=== PATIENT | male | born 1945 | race Asian ===

== ENCOUNTER 2023-05-09 21:59 | Inpatient (IN) | payer MEDICARE, OTHER ==
[~2023-05-09] VITALS: Ht 170.2 cm; Wt 49.9 kg
[2023-05-09] MEDS: levoFLOXacin 750MG/D5W 150 ML IV ONE (22:30)
[2023-05-09] MEDS: VANCOMYCIN IV 1,000 MG in IV DEXTROSE 5% 250 ML IV ONE (22:30)
[2023-05-09] MEDS ORDERED: PIPERACILLIN/TAZOBACTAM/D5W 50 ML IV ONE (23:07)
[2023-05-09 23:09] LABS: BASOPHILS # (AUTO) 0.1 K/UL (0.0-0.2); BASOPHILS % (AUTO) 0.7 % (0.0-2.0); HEMATOCRIT 28.8 % (36.7-47.1); HEMOGLOBIN 9.3 g/dL (12.5-16.3); LYMPHOCYTES # (AUTO) 1.2 K/uL (0.8-4.8); LYMPHOCYTES % (AUTO) 9.9 % (20.5-51.5); MEAN CORPUSCULAR HEMOGLOBIN 29.8 uug (23.8-33.4); MEAN CORPUSCULAR HGB CONC 32 g/dL (32.5-36.3); MEAN CORPUSCULAR VOLUME 92.6 fL (73.0-96.2); MONOCYTES # (AUTO) 0.7 K/uL (0.1-1.30); MONOCYTES % (AUTO) 5.4 % (0.0-11.0); NEUTROPHILS # (AUTO) 10.2 K/uL (1.8-8.9); PLATELET COUNT (AUTO) 329 K/uL (152-348); RED BLOOD CELL COUNT(AUTO) 3.11 MIL/uL (4.06-5.63); RED CELL DISTRIBUTION WIDTH 17.5 % (12.1-16.2); WHITE BLOOD COUNT (AUTO) 12.2 K/uL (3.6-10.2)
[2023-05-09] MEDS: IV NORMAL SALINE 1000 ML BAG IV ONE (23:21)
[2023-05-09] MEDS: PIPERACILLIN SODIUM/TAZOBACTAM 3.375 G in IV DEXTROSE 5% 50 ML IV ONE (23:21)
[2023-05-09 23:22] LABS: ABG BASE EXCESS -6.4 mmol/L (-2.0-2.0); ABG HCO3 17.7 mmol/L (22.0-26.0); ABG PCO2 30.1 mmHg (35.0-48.0); ABG PH 7.387 (7.340-7.440); ABG PO2 106.6 mmHg (75.0-100.0); ABG SITE RIGHT BRACHIAL; ABG TOTAL HEMOGLOBIN 9.5 G/dL (14.0-18.0); AaDO2 97.9 mmHg; COHb 0.3 % (0.0-3.9); MetHb 0.2 % (0.0-1.5)
[2023-05-09 23:22] LABS: *BILIRUBIN,URIN NEGATIVE (NEGATIVE); *BLOOD, URINE 2+ (NEGATIVE); *COLOR,URINE YELLOW (YELLOW); *KETONES,URINE NEGATIVE (NEGATIVE); *PROTEIN,URINE 2+ (NEGATIVE); *UROBILINOGEN,URINE 0.2 E.U./dl (NORMAL); LEUKOCYTE ESTERASE ,URINE 3+ (NEGATIVE); NITRITE, URINE NEGATIVE (NEGATIVE); UGLUCOSE NEGATIVE (NEGATIVE)
[2023-05-09 23:32] LABS: ETHANOL < 3 MG/DL (0-10)
[2023-05-09 23:34] LABS: AMMONIA < 10 umol/L (11-32)
[2023-05-09 23:34] LABS: *AMPHETAMINE, URINE NEGATIVE (NEGATIVE); *BARBITURATE, URINE NEGATIVE (NEGATIVE); *BENZODIAZEPINE, URINE NEGATIVE (NEGATIVE); *CANNABINOID, URINE NEGATIVE (NEGATIVE); *COCCAINE, URINE NEGATIVE (NEGATIVE); *OPIATE, URINE NEGATIVE (NEGATIVE); *PHENCYCLIDINE SCREEN,URINE NEGATIVE (NEGATIVE); FENTANYL, URINE NEGATIVE (NEGATIVE)
[2023-05-09 23:36] LABS: DIFFERENTIAL COMMENT 1
[2023-05-09 23:38] LABS: ACETAMINOPHEN 7.7 ug/mL (10-30); ALANINE AMINOTRANSFERASE 11 U/L (16-63); ALBUMIN 2.2 g/dL (3.4-5.0); ALKALINE PHOSPHATASE 119 U/L (50-136); ASPARTATE AMINOTRANSFERASE 8 U/L (15-37); BILIRUBIN,DIRECT 0.1 mg/dL (0.0-0.2); BILIRUBIN,TOTAL 0.2 mg/dL (0.2-1.0); CALCIUM 9.8 mg/dL (8.5-10.1); CARBON DIOXIDE 21 mmol/L (21-32); CHLORIDE 115 mmol/L (98-107); CREATININE 4.1 mg/dL (0.6-1.3); GLUCOSE 126 mg/dL (74-106); SODIUM SERUM 148 mmol/L (136-145)
[2023-05-09 23:38] LABS: *CLARITY,URINE CLOUDY (CLEAR)
[2023-05-09 23:42] LABS: UREA NITROGEN, BLOOD 114 mg/dL (7-18)
[2023-05-10] VITALS (19 sets, daily range): BP systolic 107–136; BP diastolic 59–85; TEMP 97.6–97.8; O2SAT 28–100
[2023-05-10 00:24] LABS: BACTERIA,URINE FEW /HPF (NONE SEEN); RBC,URINE 20-50 /HPF (0-3); SQUAMOUS EPITHELIAL CELL,UR NONE SEEN /HPF (NONE SEEN); WBC,URINE TNTC /HPF (0-3)
[2023-05-10] MEDS ORDERED: POTA-88 PO (00:42)
[2023-05-10] MEDS ORDERED: DIVA125C5 PO (00:42)
[2023-05-10] MEDS ORDERED: DICL100G31 TP (00:42)
[2023-05-10] MEDS ORDERED: SACU1TAB PO (00:42)
[2023-05-10] MEDS ORDERED: ALBU1.25 IH (00:42)
[2023-05-10] MEDS ORDERED: GABA-532 PO (00:42)
[2023-05-10] MEDS ORDERED: MAG-5 PO (00:42)
[2023-05-10] MEDS ORDERED: MULT-213 PO (00:42)
[2023-05-10] MEDS ORDERED: ACET-3117 PO (00:42)
[2023-05-10] MEDS ORDERED: ASCO500C18 PO (00:42)
[2023-05-10] MEDS ORDERED: FERR325T28 PO (00:42)
[2023-05-10] MEDS ORDERED: POLY250017 PO (00:42)
[2023-05-10] MEDS ORDERED: LATA7.5D OP (00:42)
[2023-05-10] MEDS ORDERED: PROT30LI PO (00:42)
[2023-05-10] MEDS ORDERED: ARGI500T4 PO (00:42)
[2023-05-10] MEDS ORDERED: SENN8.6T19 PO (00:42)
[2023-05-10] MEDS ORDERED: LIDO30AD10 TD (00:42)
[2023-05-10] MEDS ORDERED: LEVE500T83 PO (00:42)
[2023-05-10] MEDS ORDERED: DONE10TA44 PO (00:42)
[2023-05-10] MEDS ORDERED: FAMO-132 PO (00:42)
[2023-05-10] MEDS ORDERED: METH5TAB6 PO (00:42)
[2023-05-10] MEDS ORDERED: SPIR25TA6 PO (00:42)
[2023-05-10] MEDS: IV NORMAL SALINE 1000 ML BAG IV ONE (00:45)
[2023-05-10] MEDS: ALBUTEROL SULFATE 2.5 MG/3 ML NEBU NEB ONE (00:45)
[2023-05-10] MEDS ORDERED: ALBUTEROL SULFATE 2.5 MG/3 ML NEBU ONE (00:55)
[2023-05-10] MEDS ORDERED: SODIUM BICARBONATE 8.4% 50 MEQ/50 ML DISP.SYRIN IV ONE (00:57)
[2023-05-10] MEDS: SODIUM BICARBONATE 8.4% 50 MEQ/50 ML DISP.SYRIN IV ONE (01:05)
[2023-05-10] MEDS ORDERED: INSULIN REGULAR, HUMAN 300 UNIT/3 ML VIAL ONE (01:06)
[2023-05-10] MEDS ORDERED: DEXTROSE 50% 50 ML DISP.SYRIN ONE (01:08)
[2023-05-10] MEDS: DEXTROSE 50% 50 ML DISP.SYRIN IV ONE (01:16)
[2023-05-10] MEDS: INSULIN REGULAR, HUMAN 300 UNIT/3 ML VIAL IV ONE (01:17)
[2023-05-10] MEDS ORDERED: VANCOMYCIN IV 200 ML ONE (01:21)
[2023-05-10] MEDS ORDERED: levoFLOXacin 750MG/D5W 150 ML IV ONE (03:12)
[2023-05-10] MEDS ORDERED: MORPHINE SULFATE 4 MG/1 ML DISP.SYRIN ONE (03:43)
[2023-05-10] MEDS ORDERED: ONDANSETRON 4 MG/2 ML VIAL ONE (03:43)
[2023-05-10] MEDS ORDERED: HYDROMORPHONE 1 MG/1 ML DISP.SYRIN ONE (04:53)
[2023-05-10] MEDS ORDERED: REMEDY ESSENTIAL ZINC PASTE 113 GM TP PRN (06:15)
[2023-05-10] MEDS ORDERED: MAGNESIUM HYDROXIDE 30 ML LIQUID UDC PO PRN (06:15)
[2023-05-10] MEDS: IV NS 1000 ML 1,000 ML IV PRN (07:45)
[2023-05-10 07:59] LABS: CARBON DIOXIDE 16 mmol/L (21-32); CHLORIDE 121 mmol/L (98-107); CREATININE 2.9 mg/dL (0.6-1.3); GLUCOSE 123 mg/dL (74-106); POTASSIUM 5.6 mmol/L (3.5-5.1); SODIUM SERUM 149 mmol/L (136-145)
[2023-05-10 08:15] LABS: UREA NITROGEN, BLOOD 91 mg/dL (7-18)
[2023-05-10] MEDS ORDERED: PANTOPRAZOLE SODIUM 40 MG VIAL ONE (09:08)
[2023-05-10] MEDS: PANTOPRAZOLE SODIUM 40 MG VIAL IV SCH (09:13)
[2023-05-10 09:50] LABS: CALCIUM 7.9 mg/dL (8.5-10.1)
[2023-05-10] MEDS: VANCOMYCIN IV 500 MG in IV DEXTROSE 5% 100 ML IV ONE (11:28)
[2023-05-10] MEDS ORDERED: NOREPINEPHRINE BITARTRATE 8 MG in IV NORMAL SALINE 242 ML IV PRN (12:00)
[2023-05-10 12:55] LABS: *BILIRUBIN,URIN NEGATIVE (NEGATIVE); *BLOOD, URINE 2+ (NEGATIVE); *CLARITY,URINE CLEAR (CLEAR); *COLOR,URINE YELLOW (YELLOW); *KETONES,URINE NEGATIVE (NEGATIVE); *PROTEIN,URINE 1+ (NEGATIVE); *UROBILINOGEN,URINE 0.2 E.U./dl (NORMAL); LEUKOCYTE ESTERASE ,URINE 1+ (NEGATIVE); NITRITE, URINE NEGATIVE (NEGATIVE); UGLUCOSE NEGATIVE (NEGATIVE)
[2023-05-10] MEDS ORDERED: NOREPINEPHRINE BITARTRATE 4 MG/4 ML VIAL IV ONE (13:07)
[2023-05-10 13:32] LABS: *CREATININE,URINE 38.7 mg/dL (30-125); *URINE TOTAL PROTEIN RANDOM 65.4 mg/dL (<150/24HR)
[2023-05-10] MEDS ORDERED: PIPERACILLIN SODIUM/TAZOBACTAM 3.375 G in IV DEXTROSE 5% 50 ML IV SCH (14:00)
[2023-05-10] MEDS: PIPERACILLIN/TAZO 2.25 G in IV DEXTROSE 5% 50 ML IV SCH (14:07)
[2023-05-10 14:12] LABS: BACTERIA,URINE MODERATE /HPF (NONE SEEN); SQUAMOUS EPITHELIAL CELL,UR FEW /HPF (NONE SEEN); WBC,URINE 20-50 /HPF (0-3); YEAST,URINE BUDDING YEAST /HPF (NONE SEEN)
[2023-05-10] MEDS: AMIODARONE HCL IV 150 MG in IV DEXTROSE 5% 100 ML IV ONE (18:12)
[2023-05-10] MEDS: MORPHINE SULFATE 2 MG/1 ML DISP.SYRIN IV PRN (21:21)
[2023-05-10] MEDS: AMIODARONE HCL IV 450 MG in IV DEXTROSE 5% 250 ML IV PRN (21:36)
[2023-05-11] VITALS (95 sets, daily range): BP systolic 72–130; BP diastolic 43–112; TEMP 97.5–98; O2SAT 92–100
[2023-05-11] MEDS: NOREPINEPHRINE BITARTRATE 8 MG in IV NORMAL SALINE 242 ML IV PRN ×2 (02:33→11:00)
[2023-05-11] MEDS: AMIODARONE HCL 150 MG/3 ML VIAL IV ONE (04:48)
[2023-05-11] MEDS ORDERED: IV 1/2NS 1000 ML 1,000 ML IV PRN (08:45)
[2023-05-11 09:20] LABS: ALANINE AMINOTRANSFERASE 7 U/L (16-63); ALBUMIN 1.8 g/dL (3.4-5.0); ALKALINE PHOSPHATASE 92 U/L (50-136); ASPARTATE AMINOTRANSFERASE 9 U/L (15-37); BILIRUBIN,TOTAL 0.3 mg/dL (0.2-1.0); CALCIUM 8.5 mg/dL (8.5-10.1); CARBON DIOXIDE 19 mmol/L (21-32); CHLORIDE 123 mmol/L (98-107); CREATINE KINASE, TOTAL 61 U/L (39-308); CREATININE 2.7 mg/dL (0.6-1.3); GLUCOSE 90 mg/dL (74-106); PHOSPHOROUS 4.9 mg/dL (2.5-4.9); POTASSIUM 5.9 mmol/L (3.5-5.1); SODIUM SERUM 150 mmol/L (136-145); TOTAL PROTEIN, SERUM 6.4 g/dL (6.4-8.2); UREA NITROGEN, BLOOD 79 mg/dL (7-18); VANCOMYCIN,RANDOM 15.6 ug/mL (20.0-30.0)
[2023-05-11 09:37] LABS: BASOPHILS % (AUTO) 0.1 % (0.0-2.0); DIFFERENTIAL COMMENT 0; HEMATOCRIT 23.6 % (36.7-47.1); LYMPHOCYTES # (AUTO) 0.4 K/uL (0.8-4.8); LYMPHOCYTES % (AUTO) 2.3 % (20.5-51.5); MEAN CORPUSCULAR HEMOGLOBIN 29.8 uug (23.8-33.4); MEAN CORPUSCULAR HGB CONC 31 g/dL (32.5-36.3); MEAN CORPUSCULAR VOLUME 95.1 fL (73.0-96.2); MONOCYTES # (AUTO) 0.6 K/uL (0.1-1.30); MONOCYTES % (AUTO) 3.2 % (0.0-11.0); NEUTROPHILS # (AUTO) 16.4 K/uL (1.8-8.9); NEUTROPHILS % (AUTO) 94.4 % (38.5-71.5); PLATELET COUNT (AUTO) 241 K/uL (152-348); RED CELL DISTRIBUTION WIDTH 17.9 % (12.1-16.2); WHITE BLOOD COUNT (AUTO) 17.3 K/uL (3.6-10.2)
[2023-05-11 09:39] LABS: HEMOGLOBIN 7.4 g/dL (12.5-16.3); RED BLOOD CELL COUNT(AUTO) 2.49 MIL/uL (4.06-5.63)
[2023-05-11] MEDS: IV D5 1/2 NS 1000 ML 1,000 ML IV PRN (10:54)
[2023-05-11 10:55] LABS: THYROID STIMULATING HORMONE 4.621 mIU/mL (0.358-3.740)
[2023-05-11] MEDS: ONDANSETRON 4 MG/2 ML VIAL IV PRN (16:25)
[2023-05-11] MEDS: MUPIROCIN 2% OINT 22 GM TUBE NS SCH (18:48)
[2023-05-11 23:32] LABS: CALCIUM 8.6 mg/dL (8.5-10.1); CARBON DIOXIDE 17 mmol/L (21-32); CHLORIDE 121 mmol/L (98-107); CREATININE 2.6 mg/dL (0.6-1.3); GLUCOSE 111 mg/dL (74-106); POTASSIUM 5.6 mmol/L (3.5-5.1); SODIUM SERUM 149 mmol/L (136-145); UREA NITROGEN, BLOOD 71 mg/dL (7-18)
[2023-05-12] VITALS (83 sets, daily range): BP systolic 71–128; BP diastolic 49–104; TEMP 97.4–98; O2SAT 92–100
[2023-05-12] MEDS: SODIUM BICARBONATE 8.4% 50 MEQ in IV D5W 1000ML 1,000 ML IV PRN (00:54)
[2023-05-12] MEDS: SODIUM POLYSTYRENE SULFONATE 15 G/60 ML LIQUID UDC NG ONE ×2 (02:00→05:15)
[2023-05-12 07:07] LABS: PTH, INTACT 56 pg/mL (15-65)
[2023-05-12] MEDS: ACETAMINOPHEN 325 MG TABLET PO PRN (07:58)
[2023-05-12] MEDS ORDERED: AMIODARONE HCL IV 450 MG in IV DEXTROSE 5% 250 ML IV PRN (08:00)
[2023-05-12 08:08] LABS: BASOPHILS % (AUTO) 0.2 % (0.0-2.0); EOSINOPHILS % (AUTO) 0.1 % (0.0-7.0); HEMATOCRIT 24.3 % (36.7-47.1); HEMOGLOBIN 7.8 g/dL (12.5-16.3); LYMPHOCYTES # (AUTO) 0.7 K/uL (0.8-4.8); LYMPHOCYTES % (AUTO) 3.7 % (20.5-51.5); MEAN CORPUSCULAR HGB CONC 32 g/dL (32.5-36.3); MEAN CORPUSCULAR VOLUME 93.8 fL (73.0-96.2); MONOCYTES # (AUTO) 0.8 K/uL (0.1-1.30); NEUTROPHILS # (AUTO) 17.8 K/uL (1.8-8.9); PLATELET COUNT (AUTO) 282 K/uL (152-348); RED BLOOD CELL COUNT(AUTO) 2.59 MIL/uL (4.06-5.63); WHITE BLOOD COUNT (AUTO) 19.4 K/uL (3.6-10.2)
[2023-05-12 08:14] LABS: DIFFERENTIAL COMMENT 1
[2023-05-12 08:17] LABS: CALCIUM 8.7 mg/dL (8.5-10.1); CARBON DIOXIDE 20 mmol/L (21-32); CHLORIDE 124 mmol/L (98-107); CREATININE 2.5 mg/dL (0.6-1.3); GLUCOSE 90 mg/dL (74-106); POTASSIUM 5.2 mmol/L (3.5-5.1); SODIUM SERUM 152 mmol/L (136-145); UREA NITROGEN, BLOOD 63 mg/dL (7-18)
[2023-05-12] MEDS: MORPHINE SULFATE 4 MG/1 ML DISP.SYRIN IM PRN (09:08)
[2023-05-12] MEDS: NEPRO 1000 ML GT PRN (17:39)
[2023-05-12] MEDS: PIPERACILLIN SODIUM/TAZOBACTAM 3.375 G in IV DEXTROSE 5% 100 ML IV SCH (18:58)
[2023-05-12] MEDS: TEMAZEPAM 15 MG CAPSULE PO PRN (22:22)
[2023-05-13] VITALS (61 sets, daily range): BP systolic 74–134; BP diastolic 51–93; TEMP 96.8–98; O2SAT 95–100
[2023-05-13] MEDS: IV NORMAL SALINE 250 ML IV PRN (00:01)
[2023-05-13] MEDS ORDERED: AMIODARONE HCL 150 MG/3 ML VIAL IV ONE ×4 (01:07→01:08)
[2023-05-13] MEDS: AMIODARONE HCL IV 150 MG in IV DEXTROSE 5% 100 ML IV ONE (04:11)
[2023-05-13] MEDS: AMIODARONE HCL IV 450 MG in IV DEXTROSE 5% 250 ML IV PRN (04:13)
[2023-05-13 05:24] LABS: BASOPHILS % (AUTO) 0.1 % (0.0-2.0); EOSINOPHILS % (AUTO) 0.1 % (0.0-7.0); HEMATOCRIT 24.1 % (36.7-47.1); HEMOGLOBIN 7.6 g/dL (12.5-16.3); LYMPHOCYTES % (AUTO) 4.2 % (20.5-51.5); MEAN CORPUSCULAR HEMOGLOBIN 29.7 uug (23.8-33.4); MEAN CORPUSCULAR HGB CONC 32 g/dL (32.5-36.3); MONOCYTES # (AUTO) 0.8 K/uL (0.1-1.30); MONOCYTES % (AUTO) 3.2 % (0.0-11.0); NEUTROPHILS # (AUTO) 22.3 K/uL (1.8-8.9); NEUTROPHILS % (AUTO) 92.4 % (38.5-71.5); PLATELET COUNT (AUTO) 276 K/uL (152-348); RED BLOOD CELL COUNT(AUTO) 2.56 MIL/uL (4.06-5.63); RED CELL DISTRIBUTION WIDTH 18.2 % (12.1-16.2); WHITE BLOOD COUNT (AUTO) 24.2 K/uL (3.6-10.2)
[2023-05-13 05:35] LABS: DIFFERENTIAL COMMENT 1
[2023-05-13 05:54] LABS: CALCIUM 8.5 mg/dL (8.5-10.1); CARBON DIOXIDE 20 mmol/L (21-32); CHLORIDE 121 mmol/L (98-107); CREATININE 2.4 mg/dL (0.6-1.3); GLUCOSE 84 mg/dL (74-106); POTASSIUM 4.5 mmol/L (3.5-5.1); SODIUM SERUM 152 mmol/L (136-145); UREA NITROGEN, BLOOD 56 mg/dL (7-18)
[2023-05-13] MEDS: levETIRAcetam 500 MG TABLET PO SCH (16:39)
[2023-05-13] MEDS: SENNOSIDES 1 TABLET PO SCH (16:40)
[2023-05-13] MEDS: METHIMAZOLE 5 MG TABLET PO SCH (16:40)
[2023-05-13] MEDS ORDERED: Medication Not On Formulary EA (Levetiracetam 500 MG) PO SCH (17:00)
[2023-05-14] VITALS (77 sets, daily range): BP systolic 67–146; BP diastolic 35–97; TEMP 97.6–98.7; O2SAT 87–100
[2023-05-14 05:11] LABS: BASOPHILS % (AUTO) 0.1 % (0.0-2.0); EOSINOPHILS % (AUTO) 0.1 % (0.0-7.0); HEMATOCRIT 24.4 % (36.7-47.1); HEMOGLOBIN 7.8 g/dL (12.5-16.3); LYMPHOCYTES # (AUTO) 0.8 K/uL (0.8-4.8); MEAN CORPUSCULAR HEMOGLOBIN 29.9 uug (23.8-33.4); MEAN CORPUSCULAR HGB CONC 32 g/dL (32.5-36.3); MEAN CORPUSCULAR VOLUME 93.5 fL (73.0-96.2); MONOCYTES % (AUTO) 4.6 % (0.0-11.0); NEUTROPHILS # (AUTO) 19.1 K/uL (1.8-8.9); NEUTROPHILS % (AUTO) 91.2 % (38.5-71.5); PLATELET COUNT (AUTO) 262 K/uL (152-348); RED BLOOD CELL COUNT(AUTO) 2.61 MIL/uL (4.06-5.63); RED CELL DISTRIBUTION WIDTH 18.1 % (12.1-16.2); WHITE BLOOD COUNT (AUTO) 20.9 K/uL (3.6-10.2)
[2023-05-14 05:37] LABS: DIFFERENTIAL COMMENT 1
[2023-05-14 05:41] LABS: CALCIUM 8.5 mg/dL (8.5-10.1); CARBON DIOXIDE 17 mmol/L (21-32); CHLORIDE 116 mmol/L (98-107); CREATININE 2.6 mg/dL (0.6-1.3); GLUCOSE 75 mg/dL (74-106); MAGNESIUM 1.8 mg/dL (1.8-2.4); PHOSPHOROUS 5.1 mg/dL (2.5-4.9); POTASSIUM 4.5 mmol/L (3.5-5.1); SODIUM SERUM 147 mmol/L (136-145); UREA NITROGEN, BLOOD 56 mg/dL (7-18)
[2023-05-14] MEDS ORDERED: MIDODRINE HCL 2.5 MG TABLET PO SCH (09:00)
[2023-05-14 09:06] LABS: A/G RATIO 0.5 (0.7-1.7); ALPHA-1-GLOBULIN 0.4 g/dL (0.0-0.4); ALPHA-2-GLOBULIN 0.8 g/dL (0.4-1.0); BETA GLOBULIN 0.8 g/dL (0.7-1.3); GAMMA GLOBULIN 1.7 g/dL (0.4-1.8); GLOBULIN, TOTAL 3.7 g/dL (2.2-3.9); M-SPIKE Not Observed g/dL (Not Observed)
[2023-05-14] MEDS: MIDODRINE HCL 5 MG TABLET PO SCH (09:38)
[2023-05-14] MEDS: MEROPENEM 500 MG in IV NORMAL SALINE 50 ML IV SCH (09:40)
[2023-05-14 10:13] LABS: ABG BASE EXCESS -13.3 mmol/L (-2.0-2.0); ABG HCO3 13.5 mmol/L (22.0-26.0); ABG PCO2 34.8 mmHg (35.0-48.0); ABG PH 7.207 (7.340-7.440); ABG PO2 73.6 mmHg (75.0-100.0); ABG TOTAL HEMOGLOBIN 8.8 G/dL (14.0-18.0); AaDO2 91.8 mmHg; MetHb 0.2 % (0.0-1.5); O2Hb 93.1 % (94.0-97.0)
[2023-05-14] MEDS ORDERED: ETOMIDATE 20 MG/10 ML VIAL ONE (14:00)
[2023-05-14] MEDS ORDERED: LEVALBUTEROL HCL NEB 0.63 MG/3 ML NEBU NEB PRN (14:15)
[2023-05-14] MEDS: methylPREDNISolone SOD SUCC 125 MG/2 ML VIAL IV ONE (14:28)
[2023-05-14] MEDS: PROPOFOL 100 ML IV PRN (14:31)
[2023-05-14 16:01] LABS: ABG BASE EXCESS -13.6 mmol/L (-2.0-2.0); ABG HCO3 14.2 mmol/L (22.0-26.0); ABG PCO2 40.4 mmHg (35.0-48.0); ABG PH 7.164 (7.340-7.440); AaDO2 88.4 mmHg; COHb 0.6 % (0.0-3.9); MetHb 0.2 % (0.0-1.5); O2Hb 90.9 % (94.0-97.0); VT, ABG 400 mL
[2023-05-14] MEDS: DOXYCYCLINE HYCLATE 100 MG TABLET PO SCH (21:15)
[2023-05-14] MEDS ORDERED: MUPIROCIN 2% OINT 22 GM TUBE NS SCH (21:15)
[2023-05-14] MEDS: HEPARIN SODIUM,PORCINE 5,000 UNITS/ML VIAL SQ SCH (21:17)
[2023-05-15] VITALS (75 sets, daily range): BP systolic 84–136; BP diastolic 55–94; TEMP 96.4–97.8; O2SAT 100
[2023-05-15 05:03] LABS: BASOPHILS % (AUTO) 0.3 % (0.0-2.0); HEMATOCRIT 26.4 % (36.7-47.1); HEMOGLOBIN 8.4 g/dL (12.5-16.3); LYMPHOCYTES # (AUTO) 0.5 K/uL (0.8-4.8); MEAN CORPUSCULAR HEMOGLOBIN 29.5 uug (23.8-33.4); MEAN CORPUSCULAR HGB CONC 32 g/dL (32.5-36.3); MEAN CORPUSCULAR VOLUME 92.7 fL (73.0-96.2); MONOCYTES # (AUTO) 0.1 K/uL (0.1-1.30); MONOCYTES % (AUTO) 0.6 % (0.0-11.0); NEUTROPHILS # (AUTO) 14.6 K/uL (1.8-8.9); NEUTROPHILS % (AUTO) 96.1 % (38.5-71.5); PLATELET COUNT (AUTO) 270 K/uL (152-348); RED BLOOD CELL COUNT(AUTO) 2.85 MIL/uL (4.06-5.63); RED CELL DISTRIBUTION WIDTH 18.2 % (12.1-16.2); WHITE BLOOD COUNT (AUTO) 15.2 K/uL (3.6-10.2)
[2023-05-15 05:31] LABS: ABG BASE EXCESS -12.8 mmol/L (-2.0-2.0); ABG HCO3 13.3 mmol/L (22.0-26.0); ABG PCO2 31.5 mmHg (35.0-48.0); ABG PH 7.244 (7.340-7.440); ABG SITE RIGHT RADIAL; ABG TOTAL HEMOGLOBIN 10.8 G/dL (14.0-18.0); AaDO2 98.5 mmHg; COHb 0.3 % (0.0-3.9); MetHb 0.2 % (0.0-1.5); O2Hb 98.4 % (94.0-97.0); VT, ABG 450 mL
[2023-05-15 05:36] LABS: CALCIUM 8.6 mg/dL (8.5-10.1); CARBON DIOXIDE 15 mmol/L (21-32); CHLORIDE 113 mmol/L (98-107); CREATININE 2.9 mg/dL (0.6-1.3); GLUCOSE 124 mg/dL (74-106); MAGNESIUM 2.1 mg/dL (1.8-2.4); PHOSPHOROUS 6.8 mg/dL (2.5-4.9); POTASSIUM 4.6 mmol/L (3.5-5.1); SODIUM SERUM 144 mmol/L (136-145); UREA NITROGEN, BLOOD 62 mg/dL (7-18)
[2023-05-15 05:45] LABS: DIFFERENTIAL COMMENT 1
[2023-05-15] MEDS: HYDROCORTISONE SOD SUCCINATE 100 MG/2 ML VIAL IV SCH (09:47)
[2023-05-16] VITALS (63 sets, daily range): BP systolic 76–122; BP diastolic 44–83; TEMP 93–96.4; O2SAT 100
[2023-05-16 05:04] LABS: BASOPHILS % (AUTO) 0.1 % (0.0-2.0); HEMATOCRIT 24.2 % (36.7-47.1); HEMOGLOBIN 7.9 g/dL (12.5-16.3); LYMPHOCYTES # (AUTO) 0.3 K/uL (0.8-4.8); LYMPHOCYTES % (AUTO) 3.1 % (20.5-51.5); MEAN CORPUSCULAR HEMOGLOBIN 30.3 uug (23.8-33.4); MEAN CORPUSCULAR HGB CONC 33 g/dL (32.5-36.3); MONOCYTES # (AUTO) 0.2 K/uL (0.1-1.30); MONOCYTES % (AUTO) 1.6 % (0.0-11.0); NEUTROPHILS # (AUTO) 9.8 K/uL (1.8-8.9); NEUTROPHILS % (AUTO) 95.2 % (38.5-71.5); PLATELET COUNT (AUTO) 271 K/uL (152-348); RED BLOOD CELL COUNT(AUTO) 2.61 MIL/uL (4.06-5.63); RED CELL DISTRIBUTION WIDTH 18.2 % (12.1-16.2); WHITE BLOOD COUNT (AUTO) 10.3 K/uL (3.6-10.2)
[2023-05-16 05:31] LABS: CARBON DIOXIDE 16 mmol/L (21-32); CHLORIDE 111 mmol/L (98-107); CREATININE 2.8 mg/dL (0.6-1.3); GLUCOSE 133 mg/dL (74-106); MAGNESIUM 2.2 mg/dL (1.8-2.4); SODIUM SERUM 142 mmol/L (136-145); UREA NITROGEN, BLOOD 78 mg/dL (7-18)
[2023-05-16 05:37] LABS: DIFFERENTIAL COMMENT 1
[2023-05-16 05:50] LABS: ABG BASE EXCESS -13.5 mmol/L (-2.0-2.0); ABG HCO3 12.5 mmol/L (22.0-26.0); ABG PCO2 29.4 mmHg (35.0-48.0); ABG PH 7.246 (7.340-7.440); ABG PO2 128.7 mmHg (75.0-100.0); ABG SITE RIGHT RADIAL; ABG TOTAL HEMOGLOBIN 9.6 G/dL (14.0-18.0); AaDO2 98.1 mmHg; COHb 0.3 % (0.0-3.9); MetHb 0.3 % (0.0-1.5); O2Hb 97.8 % (94.0-97.0); VT, ABG 400 mL
[2023-05-16] MEDS ORDERED: REMEDY ESSENTIAL ZINC PASTE 113 GM TOP PRN (12:30)
[2023-05-16] MEDS: MIDODRINE HCL 5 MG TABLET PO SCH (13:39)
[2023-05-16] MEDS: MIRALAX 17 GM POWD.PACK PO PRN (16:33)
[2023-05-16] MEDS: METOCLOPRAMIDE HCL 10 MG/2 ML VIAL IV SCH (21:08)
[2023-05-17] VITALS (103 sets, daily range): BP systolic 37–176; BP diastolic 13–121; TEMP 94–98; O2SAT 84–100
[2023-05-17] MEDS: SODIUM BICARBONATE 8.4% 100 MEQ in IV 1/2NS 1000 ML 1,000 ML IV PRN (03:59)
[2023-05-17 05:20] LABS: BASOPHILS # (AUTO) 0.2 K/UL (0.0-0.2); BASOPHILS % (AUTO) 1.1 % (0.0-2.0); HEMATOCRIT 32.8 % (36.7-47.1); HEMOGLOBIN 10.4 g/dL (12.5-16.3); LYMPHOCYTES # (AUTO) 0.2 K/uL (0.8-4.8); LYMPHOCYTES % (AUTO) 1.1 % (20.5-51.5); MEAN CORPUSCULAR HGB CONC 32 g/dL (32.5-36.3); MEAN CORPUSCULAR VOLUME 91.3 fL (73.0-96.2); MONOCYTES # (AUTO) 0.3 K/uL (0.1-1.30); MONOCYTES % (AUTO) 1.3 % (0.0-11.0); NEUTROPHILS # (AUTO) 20.5 K/uL (1.8-8.9); NEUTROPHILS % (AUTO) 96.5 % (38.5-71.5); PLATELET COUNT (AUTO) 397 K/uL (152-348); RED BLOOD CELL COUNT(AUTO) 3.59 MIL/uL (4.06-5.63); RED CELL DISTRIBUTION WIDTH 18.5 % (12.1-16.2); WHITE BLOOD COUNT (AUTO) 21.3 K/uL (3.6-10.2)
[2023-05-17 05:34] LABS: DIFFERENTIAL COMMENT 1
[2023-05-17 05:46] LABS: ALBUMIN 1.9 g/dL (3.4-5.0); CARBON DIOXIDE 11 mmol/L (21-32); CHLORIDE 107 mmol/L (98-107); CREATININE 3.1 mg/dL (0.6-1.3); GLUCOSE 176 mg/dL (74-106); MAGNESIUM 2.3 mg/dL (1.8-2.4); PHOSPHOROUS 7.5 mg/dL (2.5-4.9); POTASSIUM 4.1 mmol/L (3.5-5.1); SODIUM SERUM 138 mmol/L (136-145)
[2023-05-17 05:52] LABS: UREA NITROGEN, BLOOD 89 mg/dL (7-18)
[2023-05-17 06:11] LABS: ABG BASE EXCESS -18.5 mmol/L (-2.0-2.0); ABG HCO3 9.4 mmol/L (22.0-26.0); ABG PCO2 29.1 mmHg (35.0-48.0); ABG PH 7.126 (7.340-7.440); ABG PO2 85.9 mmHg (75.0-100.0); ABG SITE RIGHT RADIAL; ABG TOTAL HEMOGLOBIN 11.4 G/dL (14.0-18.0); AaDO2 93.4 mmHg; COHb 0.1 % (0.0-3.9); MetHb 0.2 % (0.0-1.5); O2Hb 93.9 % (94.0-97.0); VT, ABG 400 mL
[2023-05-17] MEDS ORDERED: NOREPINEPHRINE BITARTRATE 4 MG/4 ML VIAL IV ONE (07:09)
[2023-05-17] MEDS ORDERED: PHENYLEPHRINE IV 50 MG in IV NORMAL SALINE 245 ML IV PRN (07:45)
[2023-05-17] MEDS: PHENYLEPHRINE IV 50 MG in IV NORMAL SALINE 245 ML IV PRN ×2 (08:04→21:41)
[2023-05-17] MEDS: IV LACTATED RINGERS SOLUTION 1,000 ML IV PRN ×2 (10:19→14:06)
[2023-05-17] MEDS: SODIUM BICARBONATE 8.4% 50 MEQ/50 ML DISP.SYRIN IV ONE (10:24)
[2023-05-17] MEDS ORDERED: NOREPINEPHRINE BITARTRATE 32 MG in IV NORMAL SALINE 218 ML IV PRN (10:30)
[2023-05-17 12:12] LABS: ABG BASE EXCESS -10.3 mmol/L (-2.0-2.0); ABG HCO3 14.4 mmol/L (22.0-26.0); ABG PCO2 27.4 mmHg (35.0-48.0); ABG PH 7.337 (7.340-7.440); ABG SITE LEFT RADIAL; ABG TOTAL HEMOGLOBIN 8.7 G/dL (14.0-18.0); AaDO2 97.4 mmHg; MetHb 0.3 % (0.0-1.5); O2Hb 97.4 % (94.0-97.0); VT, ABG 400 mL
[2023-05-17 12:43] LABS: LACTIC ACID 2.5 mmol/L (0.4-2.0)
[2023-05-17] MEDS: SODIUM BICARBONATE 8.4% 150 MEQ in IV D5W 1000ML 1,000 ML IV PRN (12:59)
[2023-05-17 15:02] LABS: BILIRUBIN,DIRECT 0.1 mg/dL (0.0-0.2); BILIRUBIN,TOTAL 0.4 mg/dL (0.2-1.0)
[2023-05-17] MEDS: DOXYCYCLINE HYCLATE IV 100 MG in IV DEXTROSE 5% 100 ML IV SCH (20:58)
[2023-05-17] MEDS ORDERED: PHENYLEPHRINE 10 MG/1 ML VIAL ONE (21:43)
[2023-05-18] VITALS (91 sets, daily range): BP systolic 65–116; BP diastolic 45–85; TEMP 97.4–98.4; O2SAT 99–100
[2023-05-18 05:12] LABS: MEAN CORPUSCULAR VOLUME 89.3 fL (73.0-96.2); WHITE BLOOD COUNT (AUTO) 12.8 K/uL (3.6-10.2)
[2023-05-18 05:13] LABS: BASOPHILS % (AUTO) 0.1 % (0.0-2.0); LYMPHOCYTES # (AUTO) 0.1 K/uL (0.8-4.8); MEAN CORPUSCULAR HEMOGLOBIN 29.4 uug (23.8-33.4); MEAN CORPUSCULAR HGB CONC 33 g/dL (32.5-36.3); MONOCYTES # (AUTO) 0.2 K/uL (0.1-1.30); MONOCYTES % (AUTO) 1.3 % (0.0-11.0); NEUTROPHILS # (AUTO) 12.5 K/uL (1.8-8.9); NEUTROPHILS % (AUTO) 97.6 % (38.5-71.5); PLATELET COUNT (AUTO) 221 K/uL (152-348)
[2023-05-18 05:36] LABS: DIFFERENTIAL COMMENT 1; HEMATOCRIT 20.9 % (36.7-47.1); HEMOGLOBIN 6.9 g/dL (12.5-16.3); RED BLOOD CELL COUNT(AUTO) 2.34 MIL/uL (4.06-5.63)
[2023-05-18 05:43] LABS: CARBON DIOXIDE 25 mmol/L (21-32); CHLORIDE 102 mmol/L (98-107); CREATININE 2.3 mg/dL (0.6-1.3); GLUCOSE 366 mg/dL (74-106); MAGNESIUM 1.4 mg/dL (1.8-2.4); PHOSPHOROUS 4.7 mg/dL (2.5-4.9); SODIUM SERUM 139 mmol/L (136-145); UREA NITROGEN, BLOOD 66 mg/dL (7-18)
[2023-05-18 05:52] LABS: CALCIUM 6.1 mg/dL (8.5-10.1)
[2023-05-18] MEDS ORDERED: POTASSIUM CHLORIDE 20 MEQ POWDER PACKET GT ONE (09:00)
[2023-05-18 10:15] LABS: CALCIUM 6.4 mg/dL (8.5-10.1); CARBON DIOXIDE 20 mmol/L (21-32); CHLORIDE 101 mmol/L (98-107); CREATININE 2.4 mg/dL (0.6-1.3); GLUCOSE 318 mg/dL (74-106); SODIUM SERUM 134 mmol/L (136-145); UREA NITROGEN, BLOOD 69 mg/dL (7-18)
[2023-05-18] MEDS: MAGNESIUM SULFATE/D5W 100 ML IV SCH (10:32)
[2023-05-18] MEDS: POTASSIUM CHLORIDE 50 ML IV SCH (10:33)
[2023-05-18] MEDS ORDERED: ALBUTEROL SULFATE 1.25 MG/3 ML NEBU NEB PRN (16:00)
[2023-05-19] VITALS (37 sets, daily range): BP systolic 50–127; BP diastolic 25–89; TEMP 97.6–97.8; O2SAT 93–100
[2023-05-19 05:49] LABS: BASOPHILS % (AUTO) 0.1 % (0.0-2.0); DIFFERENTIAL COMMENT 0; HEMATOCRIT 32.3 % (36.7-47.1); HEMOGLOBIN 10.9 g/dL (12.5-16.3); LYMPHOCYTES # (AUTO) 0.3 K/uL (0.8-4.8); MEAN CORPUSCULAR HEMOGLOBIN 30.8 uug (23.8-33.4); MEAN CORPUSCULAR HGB CONC 34 g/dL (32.5-36.3); MEAN CORPUSCULAR VOLUME 91.5 fL (73.0-96.2); MONOCYTES # (AUTO) 0.4 K/uL (0.1-1.30); MONOCYTES % (AUTO) 1.4 % (0.0-11.0); NEUTROPHILS # (AUTO) 25.8 K/uL (1.8-8.9); NEUTROPHILS % (AUTO) 97.5 % (38.5-71.5); PLATELET COUNT (AUTO) 248 K/uL (152-348); RED BLOOD CELL COUNT(AUTO) 3.53 MIL/uL (4.06-5.63); RED CELL DISTRIBUTION WIDTH 17.4 % (12.1-16.2); WHITE BLOOD COUNT (AUTO) 26.4 K/uL (3.6-10.2)
[2023-05-19 06:08] LABS: CALCIUM 6.9 mg/dL (8.5-10.1); CARBON DIOXIDE 19 mmol/L (21-32); CHLORIDE 105 mmol/L (98-107); CREATININE 2.7 mg/dL (0.6-1.3); GLUCOSE 126 mg/dL (74-106); MAGNESIUM 2.1 mg/dL (1.8-2.4); PHOSPHOROUS 4.8 mg/dL (2.5-4.9); POTASSIUM 3.6 mmol/L (3.5-5.1); SODIUM SERUM 137 mmol/L (136-145)
[2023-05-19 06:12] LABS: UREA NITROGEN, BLOOD 80 mg/dL (7-18)
[2023-05-19 06:20] LABS: ABG BASE EXCESS -7.7 mmol/L (-2.0-2.0); ABG HCO3 15.4 mmol/L (22.0-26.0); ABG PCO2 25.2 mmHg (35.0-48.0); ABG PH 7.404 (7.340-7.440); ABG PO2 63.8 mmHg (75.0-100.0); ABG SITE RIGHT RADIAL; ABG TOTAL HEMOGLOBIN 12.1 G/dL (14.0-18.0); COHb 0.3 % (0.0-3.9); MetHb 0.4 % (0.0-1.5); O2Hb 91.7 % (94.0-97.0); VT, ABG 400 mL
[2023-05-19 06:20] LABS: ABG BASE EXCESS -6.8 mmol/L (-2.0-2.0); ABG PH 7.401 (7.340-7.440); ABG PO2 120.9 mmHg (75.0-100.0); ABG SITE RIGHT FEMORAL; ABG TOTAL HEMOGLOBIN 9.4 G/dL (14.0-18.0); AaDO2 98.4 mmHg; COHb 0.3 % (0.0-3.9); MetHb 0.3 % (0.0-1.5); O2Hb 97.7 % (94.0-97.0); VT, ABG 400 mL
[2023-05-19 06:36] LABS: LACTIC ACID 2.1 mmol/L (0.4-2.0)
[2023-05-19] MEDS ORDERED: PHENYLEPHRINE IV 50 MG in IV NORMAL SALINE 245 ML IV PRN (09:00)
[2023-05-19 12:06] LABS: BILIRUBIN,DIRECT 0.1 mg/dL (0.0-0.2); BILIRUBIN,TOTAL 0.4 mg/dL (0.2-1.0)
[2023-05-19] MEDS ORDERED: DC PROPOFOL ONCE EXTUBATED XX PRN (12:30)
[2023-05-19] MEDS: MORPHINE SULFATE PF IV DRIP 100 MG in IV DEXTROSE 5% 96 ML IV PRN (14:51)
[2023-05-19] MEDS: LORAZEPAM 2 MG/1 ML VIAL IV PRN (15:29)
== END 2023-05-19 16:45 | DRG 870 ==
LOC: ER 22:01 → TRANSITION 05-10 06:05 → CCU 05-10 19:32
PROVIDERS: ADMIT Nurse Practitioner Acute Care; ATTEND Internal Medicine
PROC: 0D9670Z Drainage of Stomach with Drainage Device, Via Natural or Artificial Opening (ICD-10-PCS; 2023-05-11)
PROC: 5A1955Z Respiratory Ventilation, Greater than 96 Consecutive Hours (ICD-10-PCS; principal; 2023-05-14)
PROC: 0BH17EZ Insertion of Endotracheal Airway into Trachea, Via Natural or Artificial Opening (ICD-10-PCS; 2023-05-14)
PROC: 02HV33Z Insertion of Infusion Device into Superior Vena Cava, Percutaneous Approach (ICD-10-PCS; 2023-05-14)
PROC: 30233N1 Transfusion of Nonautologous Red Blood Cells into Peripheral Vein, Percutaneous Approach (ICD-10-PCS; 2023-05-18)
DX: A41.9 Sepsis, unspecified organism (principal); G93.41 Metabolic encephalopathy; N17.0 Acute kidney failure with tubular necrosis; R65.21 Severe sepsis with septic shock; J15.69 Pneumonia due to other Gram-negative bacteria; I50.33 Acute on chronic diastolic (congestive) heart failure; J96.21 Acute and chronic respiratory failure with hypoxia; J96.22 Acute and chronic respiratory failure with hypercapnia; N39.0 Urinary tract infection, site not specified; Z16.12 Extended spectrum beta lactamase (ESBL) resistance; Z51.5 Encounter for palliative care; Z16.24 Resistance to multiple antibiotics; E87.20 Acidosis, unspecified; I13.2 Hypertensive heart and chronic kidney disease with heart failure and with stage 5 chronic kidney disease, or end stage renal disease; I48.20 Chronic atrial fibrillation, unspecified; D68.59 Other primary thrombophilia; J98.11 Atelectasis; R18.8 Other ascites; E87.0 Hyperosmolality and hypernatremia; E44.0 Moderate protein-calorie malnutrition; B96.20 Unspecified Escherichia coli [E. coli] as the cause of diseases classified elsewhere; Z79.01 Long term (current) use of anticoagulants; H40.10X0 Unspecified open-angle glaucoma, stage unspecified; G89.4 Chronic pain syndrome; E03.9 Hypothyroidism, unspecified; Z74.09 Other reduced mobility; N20.0 Calculus of kidney; E78.5 Hyperlipidemia, unspecified; G40.909 Epilepsy, unspecified, not intractable, without status epilepticus; G30.9 Alzheimer's disease, unspecified; F02.80 Dementia in other diseases classified elsewhere, unspecified severity, without behavioral disturbance, psychotic disturbance, mood disturbance, and anxiety; K21.9 Gastro-esophageal reflux disease without esophagitis; K83.8 Other specified diseases of biliary tract; R13.10 Dysphagia, unspecified; Z22.322 Carrier or suspected carrier of Methicillin resistant Staphylococcus aureus; Z79.899 Other long term (current) drug therapy; Z86.73 Personal history of transient ischemic attack (TIA), and cerebral infarction without residual deficits; Z96.642 Presence of left artificial hip joint; I27.20 Pulmonary hypertension, unspecified; I08.1 Rheumatic disorders of both mitral and tricuspid valves; D63.8 Anemia in other chronic diseases classified elsewhere; E87.5 Hyperkalemia; E86.0 Dehydration; E83.39 Other disorders of phosphorus metabolism; E88.09 Other disorders of plasma-protein metabolism, not elsewhere classified; G62.9 Polyneuropathy, unspecified; I08.3 Combined rheumatic disorders of mitral, aortic and tricuspid valves; F02.B0 Dementia in other diseases classified elsewhere, moderate, without behavioral disturbance, psychotic disturbance, mood disturbance, and anxiety
CPT/HCPCS: 36415; 36569; 36600; 70450; 71045; 74018; 76705; 76770; 82803; 83605; 83735; 83970; 84100; 84155; 84165; 84300; 84443; 84478; 84484; 85025; 85730; 86850; 86900; 86901; 86920; 87040; 93005; 93307; 94002; 94003; 94760; A4606; A4663; A6209; C1758; C9113; G0378; G0480; J0282; J1170; J1644; J1720; J1815; J1956; J2060; J2185; J2270; J2274; J2405; J2543; J2765; J2930; J3370; J3475; J3480; J3490; J7040; J7050; J7060; J7070; J7120; P9016